=== PATIENT | female | born 1980 | race Caucasian/White ===

== ENCOUNTER 2016-08-14 09:22 | Inpatient (IN) | payer BC ==
[~2016-08-14] VITALS: Ht 175.3 cm; Wt 76.4 kg
[2016-08-14] VITALS (26 sets, daily range): BP systolic 107–137; BP diastolic 58–84; PULSE 59–95; TEMP 97.8–98.4
[2016-08-14] MEDS ORDERED: ZANTAC 150MG T150 MG PO (09:36)
[2016-08-14] MEDS ORDERED: ZANTAC 150MG T150 MG (09:36)
[2016-08-14] MEDS ORDERED: PRENATAL1 TA7 PO (09:36)
[2016-08-14 10:34] LABS: BASO % 0.3 % (0.0-2.0); EOS % 0.4 % (0-4.0); GRAN # 7.1 (1.4-6.5); GRAN % 77.5 % (42.2-75.2); HEMATOCRIT 38.7 % (37.0-47.0); HEMOGLOBIN 12.8 g/dl (12.5-16.0); LYMPH # 1.5 (1.2-3.4); MEAN CELL VOLUME 95 fl (80.0-100.0); MEAN CORPUSCULAR HEMOGLOBIN 32 pg (27.0-31.0); MEAN CORPUSCULAR HGB CONC 33 g/dl (33.0-37.0); MEAN PLATELET VOLUME 10.9 fl (7.4-10.4); MONO # 0.5 (0.1-0.6); MONO % 5.3 % (1.7-9.3); PLATELET COUNT 171 K/mm3 (130-400); RED BLOOD COUNT 4.06 M/mm3 (4.10-5.30); REDCELL DISTRIBUTION WIDTH-CV 13.2 % (11.5-14.5); WHITE BLOOD COUNT 9.2 K/mm3 (4.8-10.8)
[2016-08-15 08:30] VITALS: BP 102/70; PULSE 80; TEMP 97.6
== END 2016-08-15 16:50 | disposition home or self-care (01) | DRG 775 ==
LOC: LDRO 09:22 → OB 09:48 → LDR 09:48 → OB 17:00 → LDRO 08-25 13:54
PROVIDERS: Student in an Organized Health Care Education/Training Program
PROC: 10E0XZZ Delivery of Products of Conception, External Approach (ICD-10-PCS; principal; 2016-08-14)
PROC: 0KQM0ZZ Repair Perineum Muscle, Open Approach (ICD-10-PCS; 2016-08-14)
DX: O42.02 Full-term premature rupture of membranes, onset of labor within 24 hours of rupture (principal); O69.81X0 Labor and delivery complicated by cord around neck, without compression, not applicable or unspecified; O70.1 Second degree perineal laceration during delivery; Z3A.38 38 weeks gestation of pregnancy; Z37.0 Single live birth
CPT/HCPCS: J2590; J7120

== ENCOUNTER → 2023-12-19 | Outpatient (CLI) | payer BC ==
[2005-03-18 19:30] VITALS: PULSE 92; TEMP 98.2
[~2023-12-19] MED LIST: PRENATAL1 TA7 PO; ZANTAC 150MG T150 MG; ZANTAC 150MG T150 MG PO
== END ==
LOC: MC.RAD 10:15
DX: Z12.31 Encounter for screening mammogram for malignant neoplasm of breast (principal)